=== PATIENT | male | born 1965 | race Caucasian/White ===

== ENCOUNTER 2021-05-03 18:41 | Emergency (ER) | payer MEDICARE | END 2021-05-03 20:25 | disposition home or self-care (01) | LOC: FER 18:41 | DX: S60.212A Contusion of left wrist, initial encounter (principal); F17.210 Nicotine dependence, cigarettes, uncomplicated; W19.XXXA Unspecified fall, initial encounter | CPT/HCPCS: 73110 ==

== ENCOUNTER 2021-11-09 15:44 | Inpatient (IN) | payer MEDICARE ==
[~2021-11-09] VITALS: Ht 177.8 cm; Wt 54.0 kg
[2021-11-09 16:08] LABS: BASOPHIL 0.2 % (0-2); EOSINOPHIL 0.1 % (0-5); HCT 41.3 % (42.0-52.0); HGB 14.8 g/dl (13.2-18.0); LYMPHOCYTE 3.5 % (15-48); MCH 31.6 pg (25.0-31.0); MCHC 35.8 g/dL (32.0-36.0); MCV 88.2 fL (78.0-100.0); MONOCYTE 3.5 % (0-12); MPV 10.2 fL (6.0-9.5); NRBC 0; PLT 139 K/uL (150-400); RBC 4.68 M/uL (4.70-6.00); RDW 12.2 % (11.5-14.0)
[2021-11-09 16:29] LABS: ALBUMIN 3.1 g/dL (3.4-5.0); BILIRUBIN - TOTAL 0.9 mg/dL (0.2-1.0); BUN/CREAT RATIO (CALC) 22.2 RATIO; CREATININE 0.63 mg/dL (0.67-1.17); GLOBULIN (CALCULATION) 4.6 g/dL; POTASSIUM 3.6 mmol/L (3.5-5.1); TOTAL PROTEIN 7.7 g/dL (6.4-8.2)
[2021-11-09 16:43] LABS: BILIRUBIN NEGATIVE (NEGATIVE); BLOOD TRACE-INTACT Ery/uL (NEGATIVE); CLARITY CLEAR (CLEAR); COLOR YELLOW (YELLOW); GLUCOSE (U) TRACE mg/dL (NORMAL); LEUKOCYTES NEGATIVE Leu/uL (NEGATIVE); NITRITE NEGATIVE (NEGATIVE); PROTEIN 2+ mg/dL (NEGATIVE); SPECIFIC GRAVITY 1.015 (1.001-1.030); UROBILINOGEN >=8.0 mg/dL (0.2-1.0)
[2021-11-09 16:52] LABS: MUCOUS TRACE; URINARY WBC RARE
[2021-11-09 17:04] LABS: BARBITURATES NEGATIVE (NEGATIVE); ECSTASY (MDMA) NEGATIVE (NEGATIVE); MARIJUANA (THC) POSITIVE (NEGATIVE); METHADONE NEGATIVE (NEGATIVE); OPIATES POSITIVE (NEGATIVE)
[2021-11-09 17:05] LABS: AMPHETAMINES NEGATIVE (NEGATIVE); OXYCODONE POSITIVE (NEGATIVE)
[2021-11-09 18:31] LABS: INR 1.32 (0.9-1.2); PTT 38.1 SECONDS (24.9-34.6)
--- NOTE | 2021-11-10 00:47 | NUR ---
PATIENT CAME UP TO FLOOR WITH 2 DAUGHTERS. PT. IS NONVERBAL AT THIS TIME. DAUGHTERS ARE VERY UPSET ABOUT THE INFORMATION THAT THEY HAVE RECEIVED ON THEIR FATHERS CONDITION SINCE BEING IN THE ED FOR 6 HOURS. DAUGHTERS DEMANDED TO SEE A DOCTOR AT THIS TIME. RN TOLD THEM THAT THEY WOULD BE WITH THEM SOON SHE WAS AVAILABLE. THEY STILL SEEMED UNHAPPY WITH THAT ANSWER. RN APOLOGIZED FOR THEIR EXPERIENCE IN THE ED. RN EXPLAINED MUCH SHE COULD ABOUT THE PATIENTS CONDITION WITHIN HER SCOPE. ER,RN
[2021-11-10] MEDS ORDERED: VICODIN 10/3251 EACH PO (02:29)
[2021-11-10 03:25] LABS: BASOPHIL 0.1 % (0-2); EOSINOPHIL 0 % (0-5); HCT 34.3 % (42.0-52.0); HGB 12.4 g/dl (13.2-18.0); LYMPHOCYTE 5.2 % (15-48); MCH 31.4 pg (25.0-31.0); MCHC 36.2 g/dL (32.0-36.0); MCV 86.8 fL (78.0-100.0); MONOCYTE 3.8 % (0-12); MPV 9.8 fL (6.0-9.5); NRBC 0; PLT 127 K/uL (150-400); RBC 3.95 M/uL (4.70-6.00); RDW 11.9 % (11.5-14.0); WBC 19.8 K/uL (4.0-10.5)
[2021-11-10 03:40] LABS: NEUTROPHIL 86.2 % (41-80)
[2021-11-10 03:44] LABS: ALBUMIN 2.5 g/dL (3.4-5.0); BILIRUBIN - TOTAL 0.7 mg/dL (0.2-1.0); BUN/CREAT RATIO (CALC) 29.3 RATIO; CREATININE 0.58 mg/dL (0.67-1.17); GLOBULIN (CALCULATION) 3.8 g/dL; POTASSIUM 3.1 mmol/L (3.5-5.1); TOTAL PROTEIN 6.3 g/dL (6.4-8.2)
[2021-11-10 04:15] LABS: HIV 1/2 AB NON-REACITVE (NON-REACT); HIV-1 P24 NON-REACITVE (NON-REACT)
--- NOTE | 2021-11-10 09:39 | NUR ---
11/10/21 A social assessment was conducted with Carissa Elder, daughter, via telephone. Mr. Elder and 2 of his 5 children share a home together. The children are ages 4 and 9. Their mother is currently caring for them. - Mr. Elder is supported [facility]. His disability is r/t an old spinal cord injury. Mr. Elder is independent in the home and community. He does not use any DME. He has a PCP and goes to a pain clinic in [facility]. - Will monitor for any discharge planning needs.
[2021-11-10] MEDS ORDERED: GABAPENTIN800 MG PO (11:14)
[2021-11-10 12:54] LABS: BUN/CREAT RATIO (CALC) 33.3 RATIO; CREATININE 0.57 mg/dL (0.67-1.17); POTASSIUM 3.3 mmol/L (3.5-5.1)
[2021-11-10 15:43] LABS: HGB 12.4 g/dL (13.2-18.0)
--- NOTE | 2021-11-11 04:49 | NUR ---
11/11/21 0100: [facility] NOTIFIES THAT A BED IS READY FOR TRANSFER. UNIT 4B BED 6. FAMILY AND PATIENT NOTIFIED. 0115: REPORT CALLED TO FREDA GUTIERREZ. 0130: [facility] NOTIFIED NEED FOR [facility] AMBULANCE NEEDED FOR [facility]. 0345: [facility] ARRIVES TO ICU TO MANAGER ORANGE PATIENT. VSS. NO COMPLAINTS FROM PATIENT AT THIS TIME. FAMILY AT BEDSIDE. PATIENT TRANSFERRED TO [facility]. BP 154/88; P 94; TEMP 98.6; RR 16; 100% SAT ON ROOM AIR.
[2021-11-11 06:08] LABS: HBSAG SCREEN Negative (Negative); HCV AB 0.1 (0.0-0.9); HEP A AB, IGM Negative (Negative); HEP B CORE AB, IGM Negative (Negative)
--- NOTE | 2021-11-11 08:24 | NUR ---
11/11/21 Mr. Elder was transferred to [facility] on 11/10.
== END 2021-11-11 04:00 | disposition other institution (70) | DRG 871 ==
LOC: FER 15:44 → FICU 22:51
PROVIDERS: Emergency Medicine; Family Medicine; Nurse Practitioner Acute Care; ADMIT Internal Medicine
PROC: XW033E5 Introduction of Remdesivir Anti-infective into Peripheral Vein, Percutaneous Approach, New Technology Group 5 (ICD-10-PCS; principal; 2021-11-10)
PROC: 3E0333Z Introduction of Anti-inflammatory into Peripheral Vein, Percutaneous Approach (ICD-10-PCS; 2021-11-10)
PROC: 8E0ZXY6 Isolation (ICD-10-PCS; 2021-11-10)
PROC: 3E03329 Introduction of Other Anti-infective into Peripheral Vein, Percutaneous Approach (ICD-10-PCS; 2021-11-10)
PROC: B24BZZZ Ultrasonography of Heart with Aorta (ICD-10-PCS; 2021-11-10)
DX: A40.8 Other streptococcal sepsis (principal); G93.41 Metabolic encephalopathy; I63.81 Other cerebral infarction due to occlusion or stenosis of small artery; I61.5 Nontraumatic intracerebral hemorrhage, intraventricular; U07.1 COVID-19; I21.A1 Myocardial infarction type 2; N17.9 Acute kidney failure, unspecified; E46 Unspecified protein-calorie malnutrition; F11.20 Opioid dependence, uncomplicated; I76 Septic arterial embolism; E87.1 Hypo-osmolality and hyponatremia; K92.2 Gastrointestinal hemorrhage, unspecified; E87.2 Acidosis; E87.3 Alkalosis; R65.20 Severe sepsis without septic shock; D69.6 Thrombocytopenia, unspecified; E87.6 Hypokalemia; N32.89 Other specified disorders of bladder; G89.29 Other chronic pain; M54.50 Low back pain, unspecified; G62.9 Polyneuropathy, unspecified; D64.9 Anemia, unspecified; F17.210 Nicotine dependence, cigarettes, uncomplicated; F12.90 Cannabis use, unspecified, uncomplicated; R73.9 Hyperglycemia, unspecified; R29.703 NIHSS score 3; R47.81 Slurred speech; Z87.828 Personal history of other (healed) physical injury and trauma; Z98.1 Arthrodesis status; Z79.899 Other long term (current) drug therapy; Z85.828 Personal history of other malignant neoplasm of skin
CPT/HCPCS: 36415; 36600; 70450; 70490; 70553; 71045; 71275; 80048; 80053; 80074; 80305; 81001; 82378; 82550; 82728; 82803; 83605; 84145; 84443; 84484; 85018; 85025; 85379; 85610; 85730; 87040; 87077; 87088; 93005; 96361; 96365; 96372; 96375; A9579; C9113; C9399; G0480; J0692; J1170; J1644; J2060; J2270; J2543; J3370; J3475; J3486; J7030; J7050; J7120; Q9967; U0002